=== PATIENT | male | born 1955 | race Caucasian/White ===

== ENCOUNTER 2023-10-03 10:00 | Outpatient (CLI) | payer MEDICARE, OTHER, SELFPAY ==
--- NOTE | ~2023-10-03 | MR_ITS ---
MRI of the lumbar spine Clinical History: Radiculopathy Technique: Axial T2-weighted images, and sagittal T1-weighted, T2-weighted, and STIR images were acqu ired. Findings: No acute fracture or subluxation seen. Probable mild chronic compression deformity of L3. T here is posterior fusion from L4 through S1 with associated bilateral rods and transpedicular screws. Prior hemilaminectomy at L4. No suspicious bone marrow signal abnormality seen. At L1-L2, there is no disc bulge or herniation. There is moderate facet arthropathy. No central canal stenosis. There is moderate left neural foraminal narrowing. Right neural foramen minimally narrowed . At L2-L3, there is severe degenerative disc narrowing. There is disc bulge and moderate facet arthrop athy, with minimal central canal stenosis. There is severe bilateral neural foraminal compromise, rig ht worse than left. At L3-L4, there is moderate to advanced degenerative disc narrowing. Mild disc bulge and moderate to advanced facet arthropathy are present, with mild central canal stenosis. There is severe bilateral n eural foraminal, otherwise. At L4-L5, there is facet arthropathy and minimal disc bulge. No adriana central canal stenosis. There i s severe bilateral neural foraminal compromise, left worse than right. At L5-S1, there is minimal disc bulge and facet arthropathy. No central canal stenosis. There is prob able severe bilateral neural foraminal narrowing. Paravertebral soft tissues are unremarkable. Impression: Severe degenerative spondylosis, with prior posterior fusion from L4 through S1. Probable mild chronic compression deformity of L3. Reviewed, dictated and finalized at location . Impression: Severe degenerative spondylosis, with prior posterior fusion from L4 through S1 . Probable mild chronic compression deformity of L3.
== END 2023-10-03 10:01 ==
LOC: MICIMG 10:03
PROVIDERS: PCP Physician Assistant; Visit Provider Physician Assistant
DX: M54.16 Radiculopathy, lumbar region (principal); Z98.1 Arthrodesis status; M43.06 Spondylolysis, lumbar region
CPT/HCPCS: 72148

== ENCOUNTER 2024-03-05 10:06 | Outpatient (CLI) | payer MEDICARE, OTHER, SELFPAY ==
--- NOTE | 2024-03-05 12:15 | NEURO_ITS ---
EMG and Nerve Conduction Studies Clinical note: The patient is 68-year-old with history of diabetes mellitus and bilateral footdrop. He also has had multiple surgeries on the lumbar spine. On a brief neurological examination patient was noted to have weakness of dorsiflexion of both ankles. Please refer to findings given below. Summary of findings : 1. Left and right peroneal motor distal latency is within normal limits however amplitude was moderately decreased on the right and normal on the left side conduction velocity from fibular head to ankle was mildly decreased on the left but normal on the right side. No focal slowing was seen across the fibular head. 2. Bilateral tibial motor distal latencies were within normal limits. Amplitudes were moderately decreased for left more than right side and conduction velocity mildly decreased. 3. Left sural sensory distal latency was normal however amplitude was significant decreased. Right sural and right medial plantar sensory were absent. 4. H reflex latency was mildly prolonged on the right and normal on the left side however amplitudes was markedly decreased. 5. EMG examination performed using a monopolar needle electrode. Paraspinal muscles were not examined in view of the previous surgeries in this area. Mild chronic denervation changes were seen in the right tibialis anterior however marked loss of motor unit recruitment was noted in tibialis anterior and peroneus longus and extensor digitorum brevis on both sides no denervation changes or significant changes in motor unit recruitment were seen in the proximal muscles in the L5 distribution Impression 1. 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 Overall findings are suggestive of a severe , chronic bilateral, common peroneal neuropathy most likely at fibular head distal to the branch to biceps more short head however this would appear to be predominantly axonal involvement such as may be seen with diabetes mellitus, since the no focal slowing was noted across the fibular head. Overall findings did not show evidence for a L5 radiculopathy since proximal muscles such as tensor fascial randell and semimembranosus show no denervation changes and normal recruitment pattern. Paraspinal muscles were not examined since the patient has had multiple surgeries on lumbar spine. However if clinically relevant radiographic correlation for concurrent lumbosacral radiculopathy may be considered. Please feel free to call me if you have any questions regarding this study. Clau Perry MD,FAAN,FAANEM Neurology, clinical neurophysiology and electrodiagnostic Medicine Motor Nerve Results Latency Amplitude F-Lat Segment Distance CV Comment Site (ms) (mV) (ms) (cm) (m/s) Left Fibular (EDB) Motor Ankle 4.2 2.2 Bel Fib Head 11.7 2.1 Bel Fib Head-Ankle 260 35 Pop Fossa 12.6 1.98 Pop Fossa-Bel Fib Head 70 78 Right Fibular (EDB) Motor Ankle 4.7 1.39 Bel Fib Head 11.1 1.32 Bel Fib Head-Ankle 255 40 Pop Fossa 13.0 1.32 Pop Fossa-Bel Fib Head 80 42 Left Tibial (AHB) Motor Ankle 3.6 3.0 Knee 13.9 1.86 Knee-Ankle 390 38 Right Tibial (AHB) Motor Ankle 5.2 5.0 Knee 15.2 2.7 Knee-Ankle 390 39 Sensory Nerve Results Latency (Peak) Amplitude (P-P) Segment Distance CV Comment Site (ms) (?V) (cm) (m/s) Right Medial Plantar (Mixed) Sensory Med Sole-Med Mall NR NR Med Sole-Med Mall 100 NR Left Sural Sensory Calf-Lat Mall 3.6 3 Calf-Lat Mall 120 33 Right Sural Sensory Calf-Lat Mall NR NR Calf-Lat Mall 120 NR H-Re
== END 2024-03-05 10:07 | disposition home or self-care (01) ==
PROVIDERS: Visit Provider Neurological Surgery
DX: M48.061 Spinal stenosis, lumbar region without neurogenic claudication (principal); R94.131 Abnormal electromyogram [EMG]
CPT/HCPCS: 95886; 95910

== ENCOUNTER 2024-05-30 10:41 | Outpatient (CLI) | payer MEDICARE, OTHER, SELFPAY ==
--- NOTE | ~2024-05-30 | XR_ITS ---
3 VIEWS LUMBAR SPINE Ordering provider: Lowell Maria MD History: . Z98.1 - Arthrodesis status . Comparison: None. FINDINGS: VERTEBRAL BODIES:Postoperative changes at the levels of L4, L5 and S1. No visible fracture or sublux ation. Degenerative changes of the spine. DISK SPACES: Disc spacers seen at the level of L4-L5 and L5-S1. Narrowing of the disc L2-L3 and L3-L4 . SOFT TISSUES: Aortic atherosclerotic changes. IMPRESSION: No acute osseous abnormality lumbar spine. Postoperative changes. Multilevel degenerative disc disease. Reviewed, dictated and finalized at location A. E MACHINE OPERATOR
== END 2024-05-30 10:42 | disposition home or self-care (01) ==
PROVIDERS: PCP Family Medicine; Visit Provider Neurological Surgery
DX: M51.369 Other intervertebral disc degeneration, lumbar region without mention of lumbar back pain or lower extremity pain (principal); M51.379 Other intervertebral disc degeneration, lumbosacral region without mention of lumbar back pain or lower extremity pain; Z98.1 Arthrodesis status
CPT/HCPCS: 72100

== ENCOUNTER 2024-07-04 16:02 | Outpatient (CLI) | payer MEDICARE, OTHER, SELFPAY ==
--- NOTE | ~2024-07-04 | CT_ITS ---
EXAMINATION: CT lumbar spine wo con DATE: 07/04/2024 16:27 INDICATION: Spinal stenosis, lumbar region without neurogenic claudication. TECHNIQUE: Computed tomography (CT) of the lumbar spine was performed without intravenous contrast. A utomated exposure control and iterative reconstruction technique were employed. The dose-length produ ct was 1035.77 mGy-cm. COMPARISON: Lumbar spine MRI 10/03/2023 FINDINGS: There is 9 degrees levocurvature of lumbar spine. There is 4 mm anterolisthesis of L5 on S1 . There are chronic bilateral L5 pars defects. There is mild chronic anterior wedging of T11, T12, an d L3 vertebral bodies. There are changes of anterior and posterior fusion procedures from L4 to S1 wi th interbody devices and pedicle screws. There is severely decreased disc height at L2-L3 and moderat edelmira decreased disc height at L3-L4. The following disc levels are specifically discussed: L1-L2: The disc is bulging. There is moderate bilateral facet joint osteoarthritis. There is mild gadiel ateral neural foraminal stenosis. There is no central canal stenosis. L2-L3: The disc is bulging. There is moderate right and mild left facet joint osteoarthritis. There i s moderate bilateral neural foraminal stenosis. There is mild central canal stenosis. L3-L4: The disc is bulging. There is mild bilateral facet joint hypertrophy. There is moderate bilate ral neural foraminal stenosis. There is mild central canal stenosis. L4-L5: There is moderate bilateral facet joint hypertrophy. There is mild right and moderate left nesha ral foraminal stenosis. There is no central canal stenosis. L5-S1: There is severe right and moderate left facet joint hypertrophy. There is moderate and mild le ft neural foraminal stenosis. There is no central canal stenosis. IMPRESSION: 1. Severe lumbar spondylosis. 2. Anterior and posterior fusion procedures from L4 to S1. Reviewed, dictated and finalized at location A. LATORY LEADER
== END 2024-07-04 16:03 | disposition home or self-care (01) ==
PROVIDERS: PCP Family Medicine; Visit Provider Neurological Surgery
DX: M47.816 Spondylosis without myelopathy or radiculopathy, lumbar region (principal); M43.26 Fusion of spine, lumbar region
CPT/HCPCS: 72131

== ENCOUNTER 2025-01-17 09:30 | Outpatient (CLI) | payer MEDICARE, OTHER, SELFPAY ==
--- OUTSIDE RECORDS SUMMARY | 2025-01-17 09:49 | XMS_ITS | Clinical Summary ---
Author Organization [facility] Address [address] [place] [address] Care Team Providers Care Home Energy Consultant Supervisor Name Role Phone Unavailable Primary Care Provider Unavailabl e Social History Tobacco Use Types Packs/Day Years Used Date Smoking Tobacco: Never Assessed Sex and Gender Information Value Date Recorded Sex Assigned at Not on file Legal Sex Male 10:45 AM DIRECTOR CRITICAL CARE Gender Identity Not on file Sexual Orientation Not on file Plan of Treatment Health Maintenance Due Date Last Done Comments Hepatitis C Virus (HCV) Screening 1955 TdaP Immunization 1955 Cologuard 1998 Colonoscopy 1998 Colorectal Cancer Screening 1998 Immunochemical Fecal Occult Blood 1998 Pneumococcal Immunization (5 0+ years) (1 of 1 - PCV) 2003 Zoster Immunization (1 of 2) 2003 SARS-COV-2 Immunization (1 - 2023- season) 2024 Influenza Immunization (#1) 2025 Respiratory Syncytial Virus (RSV) Immunization (Adult) (1 - 1-dose 75+ series) 2028 Hepatitis B Immunization Aged Out No longer eligible based on patient's age to complete this topic Human Papillomavirus (HPV) Immunization Aged Out No longer eligible b ased on patient's age to complete this topic Meningococcal Immunization (ACWY) Aged Out No longer eligible based on patient's age to complete this topic Rotavirus Immunization Aged Out No lo nger eligible based on patient's age to complete this topic
--- OUTSIDE RECORDS SUMMARY | 2025-01-17 09:49 | XMS_ITS | Clinical Summary ---
Author Organization [facility] Address [address] [place] [address] Care Team Providers Care Adobe Layer Helper Name Role Phone Mely Morgan PA-C Primary Care Provider Amaris Nagy MD Unavailable [phone] Source Comments [facility],non-owned Affiliates and Associated Physician Practices is amultiple site organization consisting of ambulatory clinics and hospital sitesin [place], [place], [place] and [place]. This disclosure is being madepursuant to the Care Everywhere program and may not contain all information available regarding this patient. Last updated 18.[facility] Allergies No known active allergies Medications * Be aware that medications may not be up to date on this document. Alwaysverify current medications with the patient. levothyroxine (SYNTHROID) 125 MCG tablet Take 125 mcg by mouth daily before breakfast Active metFORMIN (GLUCOPHAGE) 500 MG tablet Take 500 mg by mouth 2 times daily with morning and evening meal Active gabapentin (NEURONTIN) 300 MG capsule Take 300 mg by mouth 3 times daily Active insulin aspart (NOVOLOG) vial Inject 8 Units subcutaneously every morning Active insulin aspart (NOVOLOG) pen Inject 10 Units subcutaneously daily with lunch Active insulin aspart (NOVOLOG) pen Inject 12 Units subcutaneously daily with dinner Active sertraline (ZOLOFT) 100 MG tablet Take 100 mg by mouth once daily Active testosterone cypionate (DEPO-TESTOSTE TEENA) 200 MG/ML injection INJECT 2ML EVERY 3 WEEKS 1 Active rOPINIRole (REQUIP) 2 MG tablet Take 2 mg by mouth 2 times daily 1 Active tadalafil (CIALIS) 5 MG tablet 1 Active Continuous Blood Gluc Sensor (FREESTYLE BHARAT 14 DAY SENSOR) MISC USE 1 EVERY 14 DAYS 1 Active B-D UF III MINI PEN NEEDLES 31G X 5 MM needle USE 1 NEEDLE 4 TIMES A DAY 1 Active BD DISP NEEDLES 27G X 1/2 MISC USE 1 (ONE) SYRINGE DIRECTED WITH TESTOSTERONE 1 Active B-D 3CC LUER-PATRICK SYR 25GX1 25G X 1 3 ML MISC 1 (ONE) SYRINGE DIRECTED WITH TESTOSTERONE 1 Active SYNTHROID 175 MCG tablet Take 175 mcg by mouth once daily 1 Active metFORMIN (GLUCOPHAGE) 1000 MG tablet Take 1,000 mg by mouth 2 times daily 1 Active Active Problems Problem Noted Date Diagnosed Date Hyperkalemia 12/06/2020 Trauma 12/06/2020 Fall 12/06/2020 Hyperglycemia 12/06/2020 Elevated serum creatinine 12/06/2020 Closed fracture of third thoracic vertebra 12/06 Closed fracture of upper end of right fibula Social History Tobacco Use Types Packs/Day Years Used Date Smoking Tobacco: Never Smokeless Tobacco: Current Chew Alcohol Use Standard Drinks/Week Comments Yes 0 (1 standard drink = 0.6 oz pur e alcohol) occ Sex and Gender Information Value Date Recorded Sex Assigned at Not on file Legal Sex Male 10:37 AM CDT Gender Identity Not on file Sexual Orientation Not on file Last Filed Vital Signs Vital Sign Reading Time Taken Comments Blood Pressure 132/84 12/08/2020 8:09 AM CDT Pulse 78 12/08/2020 8:09 AM CDT Temperature 36.7 C (98.1 F) 12/08/2020 8:09 AM CDT Respiratory Rate 20 12/08/2020 8:09 AM CDT Oxygen Saturation 97% 12/08/2020 8:09 AM CDT Inhaled Oxygen Concentration - - Weight 83.9 kg (185 lb) 12/17/2020 4:05 PM CDT Height 160 cm (5' 3) 12/17/2020 4:05 PM CDT Body Mass Index 32.77 12/17/2020 4:05 PM CDT Plan of Treatment Health Maintenance Due Date Last Done Comments COLOGUARD (AGES 45-75) - COLON CA SCREENING 1953 COLON MONITORING 1953 COLONOSCOPY - COLON CA SCREENING 1953 CT COLONOGRAPHY - COLON CA SCREENING 1953 Colorectal Cancer Screening 1953 FIT - COLON CA SCREENING 1953 FLEX SIG - COLON CA SCREENING 1953 LIPID TESTING 1953 HEPATITIS C SCREENING 07/25/1971 DTAP/TDAP/TD VACCINES (1 - Tdap) 1972 PNEUMOCOCCAL VACCINE 50+ (1 of 1 - PCV) 2003 ZOSTER VACCINE (1 of 2) 2003 SCREENING FOR DIABETES 12/09/2023 , 12/08/2020, 12/07/2020, Additional history exists COVID-19 VACCINE ( - 2023- season) 2024 DEPRESSION SCREENING 06/20/2024 INFLUENZA VACCINE (#1) 2025 Respiratory Syncytial Virus (RSV) Vaccine Pt: or over 60 yrs (1 - 1-dose 75+ series) 2028 HEPATITIS B VACCINE Aged Out No longe r eligible based on patient's age to complete this topic HIB VACCINE Aged Out No longer eligi ble based on patient's age to complete this topic HPV VACCINE Aged Out No longer eligi ble based on patient's age to complete this topic MENINGOCOCCAL (Group B) VACCINE SHARED DECISION-MAKING Aged Out No longer eligible based on patient's age to complete this topic MENINGOCOCCAL GROUPS A/C/Y/W VACCINE Aged Out No longer eligible based on patient's age to complete this topic Medical Devices Implanted Type Area Heel Washer Stringing Machine Operator Device Identifier Shelf Expiration Date Model / Serial / Lot Plate Lopro Crsslck Rds Rt Dist Volr 51 Implanted:Qty: 1 on 12/07/2020 by Amaris Nagy MD at [facility] Right: Wrist [employer] [id number] / / Screw 2.7mm 18mm 3 Ld Thrdlk Tpr Head Implanted:Qty: 1 on 12/07/2020 by Amaris Nagy MD at [facility] Right: Wrist [employer] [id number] / / Screw 2.7mm 20mm Crsslck Tpr Head 3 Ld Implanted:Qty: 1 on 12/07/2020 by Amaris Nagy MD at [facility] Right: Wrist [employer] [id number] / / Screw 2.7mm 22mm Lck Sorin Nonster Bone Implanted:Qty: 4 on 12/07/2020 by Amaris Nagy MD at [facility] Right: Wrist [employer] [id number] / / Screw 2.7mm 24mm Crsslck Tpr Head 3 Ld Implanted:Qty: 2 on 12/07/2020 by Amaris Nagy MD at [facility] Right: Wrist [employer] [id number] / / Screw 2.7mm 16mm Sq Lck Rds Dist Volr Implanted:Qty: 2 on 12/07/2020 by Amaris Nagy MD at [facility] Right: Wrist [employer] [id number] / / Screw 2.7mm 16mm Lopro Nonster Bone Lf Implanted:Qty: 1 on 12/07/2020 by Amaris Nagy MD at [facility] Right: Wrist [employer] [id number] / / Explanted Type Area Heel Washer Stringing Machine Operator Device Identifier Shelf Expiration Date Model / Serial / Lot Wire K 1.6mm Ss Fx Nonster Explanted:Qty: 3 on 12/07/2020 at [facility] Right: Wrist [employer] [id number] / / Procedures Procedure Name Priority Date/Time Associated Diagnosis Comments GLUCOSE - POINT OF CARE Routine 12/08/2020 8:09 AM CDT from Last 3 Months or Most Recently Relevant to Health Maintenance Results * (ABNORMAL) GLUCOSE - POINT OF CARE (12/08/2020 8:09 AM CDT) [facility] Glucose WB/POC 234(H) 70 - 106 mg/dL 12/08/2020 8:26 AM CDT [facility] Specimen Type Arterial/C apillary 12/08/2020 8:26 AM CDT [facility] Blood BLOOD SPECIMEN / Unknown 12/08/2020 8:09 AM CDT 12/08/2020 8:26 AM CDT Angel Garza MD LAB - POINT OF CARE O RDERABLES Final Result [facility] [id number] [place] [address] from Last 3 Months or Most Recently Relevant to Health Maintenance Insurance AET MEDICARE Advance Directives * Full Code (Latest Code Status on File) Date Activated Date Inactivated Comments 12/06/2020 7:32 PM 12/08/2020 4:45 PM Care Teams Adobe Layer Helper Relationship Specialty Start Date End Date Mely Morgan PA-C [address] [place] [address] PCP - General Physician Appeals Rn 12/06/20 [place] [address] [place] [id number] Orthopedic Surgery 12/17/20
--- NOTE | 2025-01-17 10:49 | ECG_ITS ---
Test Date: 2025-01-17 11:19:23 Measurements Intervals [place] Rate: 70 P: 33 SC: 211 QRS: -21 QRSD: 132 T: -12 QT: 385 QTc: 418 Interpretive Statements SINUS RHYTHM WITH FIRST DEGREE AV BLOCK RIGHT BUNDLE BRANCH BLOCK BASELINE ARTIFACT- I, II, III, AVR ABNORMAL ECG No previous ECG available for comparison Electronically Signed On 01-18-2025 06:37:14 CDT by Layton Crawford D.O.
[2025-01-17 11:56] LABS: Hematocrit 51.0 % (42.0-52.0); Hemoglobin 16.2 g/dL (14.0-18.0); Mean Corpuscular HGB Conc 31.8 g/dl (32-36); Mean Corpuscular Hemoglobin 26.4 pg (26-34); Mean Corpuscular Volume 83.1 fl (80-100); Platelet Count Result 171 k/mm3 (150-375); Red Blood Count 6.14 M/mm3 (4.6-6.20); White Blood Count 5.3 K/mm3 (4.5-10.0)
[2025-01-17 12:02] LABS: Add Urine Microscopic? NO; Appearance Urine Clear (Clear); Glucose Urine UA 3+ mg/dL (Negative); Leukocyte Esterase Ur Negative LEU/UL (Negative); Nitrate Urine Negative (Negative); Specific Grav Ur 1.026 (1.001-1.035)
[2025-01-17 12:12] LABS: INR 1.1; Prothrombin Time 14.6 Seconds (11.1-14.7)
[2025-01-17 12:13] LABS: Partial Thromboplastin Time 31.1 Seconds (22.3-36.8)
[2025-01-17 12:20] LABS: Anion Gap 12 mmol/L (4-12); Blood Urea Nitrogen 29 mg/dL (9-20); Calcium 9.9 mg/dL (8.4-10.2); Carbon Dioxide 24 mmol/L (22-30); Chloride 99 mmol/L (98-107); Estimated Glomerular Filt Rate > 60; Glucose 218 mg/dL (65-110); Potassium 4.2 mmol/L (3.4-5.0); Sodium 135 mmol/L (137-145)
[2025-01-17 12:39] LABS: Hemoglobin A1C 7.5 % (<5.7)
== END 2025-01-17 09:31 | disposition home or self-care (01) ==
LOC: ANHSURGERY 09:35
PROVIDERS: PCP Family Medicine; Visit Provider Neurological Surgery
DX: R94.31 Abnormal electrocardiogram [ECG] [EKG] (principal); S32.009K Unspecified fracture of unspecified lumbar vertebra, subsequent encounter for fracture with nonunion
CPT/HCPCS: 36415; 80048; 81003; 83036; 85027; 85610; 85730; 86850; 86900; 86901; 93005

== ENCOUNTER 2025-01-29 02:06 | Day surgery (SDC) | payer MEDICARE, OTHER, SELFPAY ==
--- NOTE | 2025-01-17 09:36 | PC.NURSE ---
Report to the Outpatient Waiting Room, entrance under the green pavilion located off [facility], at time _6 AM on date __01/29/25 . Planned Procedure Time: _7 AM .? Time changes happen often and if your time is changed the preop area will call you the afternoon before. - You and your visitor will be asked to self-screen and do not enter if you have any COVID symptoms. Please call surgeon if you need to reschedule. - A mask is optional within the hospital at this time. Patients may have clear liquids (water, carbonated beverages, clear teas, apple juice) until 3 hours prior to surgery ( 4:30 AM) with a maximum of 20 ounces. - No food from midnight until time of surgery and no smoking, or chewing tobacco (or any form of nicotine). No chewing gum, candy or mints. Take only the following medications with a SIP of water on the morning of surgery: ___GABAPENTIN,LEVOTHYROXINE,SERTRALNIE DO NOT STOP ANY OF YOUR OTHER PRESCRIPTION MEDICATIONS PRIOR TO SURGERY EXCEPT THE FOLLOWING Hold all vitamins and supplements for 3 days per anesthesiologist.LAST DOSE 01/25/25 Medications to discontinue per physician NONE Please no make-up, nail setswana, hairspray, perfume, deodorant, or body powder the day of surgery.? No jewelry (including any body piercings) or valuables the day of surgery, leave them at home.? Please take a shower or bath the night before, or the morning of, surgery with an antibacterial soap.? Wear comfortable, loose fitting clothing.? Children are encouraged to wear pajamas. - Jewelry must be removed prior to entering the operating room.? Rings and piercings that are not removed may be cut off. - The hospital will not accept responsibility for valuables.? - Please leave all valuables, including medications, at home the day of surgery. If you are going home after surgery, a licensed city route driver must drive you home.? - NO public transportation without another adult if you receive anesthesia. - We recommend that an adult stay with you for 24 hours following discharge. - We also recommend that you do not drive, make important decision, drink alcoholic beverages, or take any drugs that were not prescribed by your health care provider for at least 24 hours after your discharge time. Follow any additional instructions given to you from your surgeon. VERBAL AND WRITTEN instructions given to __PATIENT and asked if any additional questions and then verbalized understanding. Patient advised to call surgeon office or pre surgery nurse liaison [phone] if any additional questions.
[2025-01-17 09:57] VITALS: BMI 33.7
--- NOTE | 2025-01-17 10:17 | PC.NURSE ---
Report to the Outpatient Waiting Room, entrance under the green pavilion located off [facility], at time ___6 am____ on date __01/29/25 . Planned Procedure Time: _7:30 am .? Time changes happen often and if your time is changed the preop area will call you the afternoon before. - You and your visitor will be asked to self-screen and do not enter if you have any COVID symptoms. Please call surgeon if you need to reschedule. - A mask is optional within the hospital at this time. Patients may have clear liquids (water, carbonated beverages, clear teas, apple juice) until 3 hours prior to surgery ( 4:30 am) with a maximum of 20 ounces. - No food from midnight until time of surgery and no smoking, or chewing tobacco (or any form of nicotine). No chewing gum, candy or mints. Take only the following medications with a SIP of water on the morning of surgery: _GABAPENTIN,LEVOTHYROXINE,SERTRALINE DO NOT STOP ANY OF YOUR OTHER PRESCRIPTION MEDICATIONS PRIOR TO SURGERY EXCEPT THE FOLLOWING Hold all vitamins and supplements for 3 days per anesthesiologist.LAST DOSE 01/25/25 Medications to discontinue per physician NONE Date to take last dose Please no make-up, nail tongan, hairspray, perfume, deodorant, or body powder the day of surgery.? No jewelry (including any body piercings) or valuables the day of surgery, leave them at home.? Please take a shower or bath the night before, or the morning of, surgery with an antibacterial soap.? Wear comfortable, loose fitting clothing.? Children are encouraged to wear pajamas. - Jewelry must be removed prior to entering the operating room.? Rings and piercings that are not removed may be cut off. - The hospital will not accept responsibility for valuables.? - Please leave all valuables, including medications, at home the day of surgery. If you are going home after surgery, a licensed local company flatbed truck driver must drive you home.? - NO public transportation without another adult if you receive anesthesia. - We recommend that an adult stay with you for 24 hours following discharge. - We also recommend that you do not drive, make important decision, drink alcoholic beverages, or take any drugs that were not prescribed by your health care provider for at least 24 hours after your discharge time. Follow any additional instructions given to you from your surgeon. VERBAL AND WRITTEN instructions given to __PATIENT and asked if any additional questions and then verbalized understanding. Patient advised to call surgeon office or pre surgery nurse liaison [phone] if any additional questions.
[2025-01-17 10:45] VITALS: BP 126/88; PULSE 75; RESP 18; TEMP 36.8; O2SAT 100
[2025-01-29] VITALS (16 sets, daily range): BP systolic 100–132; BP diastolic 52–81; PULSE 74–103; RESP 12–20; TEMP 36.1–38.8; O2SAT 92–100; BMI 33.3
--- NOTE | ~2025-01-29 | XR_ITS ---
Indication: L4-5, L5-S1 redo posterolateral instrumented fusion TECHNIQUE: Fluoroscopy used during L4-5, L5-S1 redo posterolateral instrumented fusion performed by [Lowell Maria MD] on 01/29/2025. 10 seconds fluoroscopy with 3 fluoroscopic images images ca ptured. FINDINGS: Correlate with procedure note. IMPRESSION: Fluoroscopy used during L4-5, L5-S1 redo posterolateral instrumented fusion. Reviewed, dictated and finalized at location A. IMPRESSION: Fluoroscopy used during L4-5, L5-S1 redo posterolateral instrumente d fusion.
--- OUTSIDE RECORDS SUMMARY | 2025-01-29 02:10 | XMS_ITS | Encounter Summary ---
Author Organization [facility] Address [address] [place] [address] Care Team Providers Care Nuclear Supervising Operator Name Role Phone Sylvia Sandoval MD Primary Care Provider [phone] Ziggy Garrison MD Unavailable [phone] Chanell Roberts MD Unavailable Antonio Cain MD Unavailable [phone] Encounter Details Date Type Department Care Team (Late st Contact Info) Description 11/25/2018 Abstract SFL CONVERSION [address] [place] [address] , Generic Conversion, Social History Tobacco Use Types Packs/Day Years Used Date Smoking Tobacco: Former Sex and Gender Information Value Date Recorded Sex Assigned at Male 01/24/2025 11:21 AM CDT Legal Sex Male 3:58 PM CDT Gender Identity Male 01/24/2025 11:21 AM CDT Sexual Orientation Not on file documented as of this encounter Plan of Treatment Not on file documented as of this encounter Visit Diagnoses Not on filedocumented in this encounter Additional Health Concerns Infection Onset Date Last Indicated Resolved Time COVID-19 Rule Out 01/15/2020 01/15/2020 01/16/2020 6:23 PM CDT COVID-19 Rule Out 08/18/2021 08/18/2021 08/18/2021 7:10 PM SCHOOL OFFICE ASSISTANT documented as of this encounter Care Teams Nuclear Supervising Operator Relationship Specialty Start Date End Date Sylvia Sandoval MD [address] [place] [phone] PCP - General FAMILY PRACTICE 03/07/17 [place] [address] [place] [address] [place] [phone] [place] [employer] Laborer CARDIOVASCULAR DISEASE 03/07/17 04/21/22 Chanell Roberts MD [address] [place] [address] Consulting Physician CARDIOVASCULAR DISEASE 04/22/22 Antonio Cain MD [address] [place] [address] Consulting Physician ORTHOPAEDIC SPINE SURGERY 09/17/22 documented as of this encounter
--- OUTSIDE RECORDS SUMMARY | 2025-01-29 02:10 | XMS_ITS | Encounter Summary ---
Author Organization [facility] Address [facility] [place] [address] Care Team Providers Care Logistics And Planning Manager Name Role Phone Sylvia Sandoval MD Primary Care Provider [phone] Chanell Roberts MD Unavailable Antonio Cain MD Unavailable [phone] Encounter Details Date Type Department Care Team (Late st Contact Info) Description 12/09/2022 Hospital Follow-up Call [facility] Unit [address] [place] [address] Lidya Nunez, RN Social History Tobacco Use Types Packs/Day Years Used Date Smoking Tobacco: Former Cigarettes Smokeless Tobacco: Current Chew Comments:only smoked as a te enager Alcohol Use Standard Drinks/Week Comments Yes 0 (1 standard drink = 0.6 oz pur e alcohol) rarely Humiliation, Afraid, Rape, and Kick questionnair e Answer Date Recorded Within the last year, have y ou been afraid of your partner or ex-partner? No 12/06/2022 Within the last year, have y ou been humiliated or emotionally abused in other ways by your partner or ex-partner? No Within the last year, have y ou been kicked, hit, slapped, or otherwise physically hurt by your partner or ex-partner? No 12/06/2022 Within the last year, have y ou been raped or forced to have any kind of sexual activity by your partner or ex-partner? No 12/06/2022 Overall Financial Resource Strain (CARDIA) Answe r Date Recorded How hard is it for you to pa y for the very basics like food, housing, medical care, and heating? Not hard at all 12/06/2022 Hunger Vital Sign Answer Date Recorded Within the past 12 months, y ou worried that your food would run out before you got the money to buy more. Never true 12/07/19 23 Within the past 12 months, t he food you bought just didn't last and you didn't have money to get more. Never true 12/06/2022 PRAPARE - Transportation Answer Date Re corded In the past 12 months, has l ack of transportation kept you from medical appointments or from getting medications? No 11/18 In the past 12 months, has l ack of transportation kept you from meetings, work, or from getting things needed for daily living? No 12/06/2022 Housing Stability Vital Sign Answer Bernardo e Recorded In the last 12 months, was t here a time when you were not able to pay the mortgage or rent on time? No 12/06/2022 In the last 12 months, how many places have you lived? 1 12/06/2022 In the last 12 months, was t here a time when you did not have a steady place to sleep or slept in a senior care (including now)? No 12/06/2022 Sex and Gender Information Value Date Recorded Sex Assigned at Male 01/24/2025 11:21 AM CDT Legal Sex Male 3:58 PM CDT Gender Identity Male 01/24/2025 11:21 AM CDT Sexual Orientation Not on file Occupation Industry Job Start Date Job End Date retired Not on file Not on file Not on file COVID-19 Exposure Response Date Recorded In the last 10 days, have yo u been in contact with someone who was confirmed or suspected to have Coronavirus/COVID-19? No / Unsure 11/23/2022 3:05 PM CDT documented as of this encounter Functional Status * Are you deaf or do you have serious difficulty hearing Answer Date of Assessment Author Status No 12/05/2022 10:52 PM CDT Jeffrey Gallardo RN Active * Are you blind or do you have serious difficulty seeing, even when wearing glasses? Answer Date of Assessment Author Status No 12/05/2022 10:52 PM CDT Jeffrey Gallardo RN Active * Do you have serious difficulty walking or climbing stairs? Answer Date of Assessment Author Status Yes 12/05/2022 10:52 PM Jeffrey Mccarthy RN Active * Do you have difficulty dressing or bathing? Answer Date of Assessment Author Status No 12/05/2022 10:52 PM Jeffrey Mccarthy RN Active * Because of a physical, mental, or emotional condition, do you have difficulty doing errands alone such as visiting a doctor's office or shopping? Answer Date of Assessment Author Status No 12/05/2022 10:52 PM Jeffrey Mccarthy RN Active documented as of this encounter Mental Status * Because of a physical, mental, or emotional condition, do you have serious difficulty concentrating, remembering, or making decisions? Answer Entry Date Author Status No 12/05/2022 10:52 PM Jeffrey Mccarthy RN Active documented in this encounter Plan of Treatment Not on file documented as of this encounter Visit Diagnoses Not on filedocumented in this encounter Care Teams Logistics And Planning Manager Relationship Specialty Start Date End Date Sylvia Sandoval MD [address] [place] [address] PCP - General FAMILY PRACTICE 03/07/17 Chanell Roberts MD [address] [place] [address] Consulting Physician CARDIOVASCULAR DISEASE 04/22/22 Antonio Cain MD [address] [place] [phone] Consulting Physician ORTHOPAEDIC SPINE SURGERY 09/17/22 documented as of this encounter
--- OUTSIDE RECORDS SUMMARY | 2025-01-29 02:10 | XMS_ITS | Clinical Summary ---
Author Organization [facility] Address [address] [place] [address] Care Team Providers Care Back Sizer Name Role Phone Unavailable Primary Care Provider Unavailabl e Social History Tobacco Use Types Packs/Day Years Used Date Smoking Tobacco: Never Assessed Sex and Gender Information Value Date Recorded Sex Assigned at Not on file Legal Sex Male 10:45 AM MULTIMEDIA AUTHORING SPECIALIST Gender Identity Not on file Sexual Orientation [...]
--- OUTSIDE RECORDS SUMMARY | 2025-01-29 02:10 | XMS_ITS | Encounter Summary ---
Author Organization [facility] Address [facility] [place] [address] Care Team Providers Care Casino Banker Name Role Phone Sylvia Sandoval MD Primary Care Provider [phone] Chanell Roberts MD Unavailable Antonio Cain MD Unavailable [phone] Encounter Details Date Type Department Care Team (Late st Contact Info) Description 12/06/2022 Pre-Procedure Call [facility] [place] [address] Chanell Roberts MD [address] [place] [address] Social History Tobacco Use Types Packs/Day Years [...] place to sleep or slept in a [place] facility (including now)? No 12/06/2022 Sex and Gender [...] Mccarthy RN Active * Do you have serious [...] on filedocumented in this encounter Care Teams Casino Banker Relationship Specialty Start Date End Date Sylvia Sandoval MD [address] [place] [phone] PCP - General FAMILY PRACTICE 03/07/17 Chanell Roberts MD [address] [place] [address] Consulting Physician CARDIOVASCULAR DISEASE 04/22/22 Antonio Cain MD [address] [place] [address] Consulting Physician ORTHOPAEDIC SPINE SURGERY 09/17/22 documented as of this encounter
--- OUTSIDE RECORDS SUMMARY | 2025-01-29 02:10 | XMS_ITS | Clinical Summary ---
Author Organization [facility] Address [facility] [place] [address] Care Team Providers Care Link Trainer Maintenance Man Name Role Phone Sylvia Sandoval MD Primary Care Provider [phone] Audrey Lanza MD Unavailable Antonio Cain MD Unavailable [phone] Allergies No known active allergies Medications metFORMIN 1000 MG tabletIndicatio ns:Diabetes Mellitus Take 1 tablet (1,000 mg total) by mouth 2 (two) times daily with meals. Indications: Diabetes Active testosterone cypionate 200 MG/ML injectionIndica tions:every 3 wks hormone Indications: every 3 wks hormone 7 Active levothyroxine (SYNTHROID) 200 MCG tabletIndicatio ns:Hypothyroidi sm Take 1 tablet (200 mcg total) by mouth every morning. Indications: Underactive Thyroid Take with 25mcg tab for total of 225mcg daily Active sertraline 100 MG tabletIndicatio ns:Depression Take 1.5 tablets (150 mg total) by mouth daily. Indications: Depression Active rOPINIRole 2 MG tabletIndicatio ns:restless legs Take by mouth 3 (three) times a day. Indications: restless legs 1/2 tab in the a.m (1 mg)., 1/2 tab at noon (1 mg) and 2 tabs at HS (4 mg) Active TRESIBA FLEXTOUCH 100 UNIT/ML Solution Pen-injector injection Inject 18 Units into the skin nightly. diabetes 1 Active empagliflozin (JARDIANCE) 25 MG tablet Take 1 tablet (25 mg total) by mouth daily. Active tamsulosin (FLOMAX) 0.4 MG Cap Take 1 capsule (0.4 mg total) by mouth daily. Active losartan (COZAAR) 25 MG tablet Take 1 tablet (25 mg total) by mouth daily. 30 tablet 11 3 Active finasteride (PROSCAR) 5 MG tablet Take 1 tablet (5 mg total) by mouth daily. 3 Active NOVOLOG FLEXPEN 100 UNIT/ML injection (PEN) 3 (three) times daily before meals. 8 units at breakfast 12 units at lunch 12 units at dinner 2 Active SYNTHROID 25 MCG tablet Take 1 tablet (25 mcg total) by mouth daily. Take with 200mcg dose for total of 225 mcg daily 3 Active cyclobenzaprine (FLEXERIL) 5 MG tablet Take 1 tablet (5 mg total) by mouth 3 (three) times daily. 3 Active gabapentin (NEURONTIN) 300 MG capsule TAKE 1 CAPSULE IN THE AM AND 2 CAPSULES IN THE PM 3 Active magnesium oxide (MAG-OX) 400 (240 Mg) MG tablet Take 1 tablet (400 mg total) by mouth daily. Active trimethoprim-po lymyxin b (POLYTRIM) ophthalmic solutionIndicat ions:Irritation of left eye Place 1 drop into the left eye 4 (four) times daily for 5 days. 10 mL 5 01/30/20 25 Active Active Problems Problem Noted Date Diagnosed Date Shock (CMS/HCC HHS/HCC) 12/06/2022 Symptomatic bradycardia 12/05/2022 Lumbar spinal stenosis 09/24/2022 Hypoglycemia 09/24/2022 ASD, spontaneous closure 03/16/2017 Resolved Problems Problem Noted Date Diagnosed Date Resolved Date Pre-operative cardiovascular examination 01/15/2020 02/29/2020 Encounters Date Type Department Care Team Description 01/24/2025 11:20 AM CDT Office Visit [address] [place] [address] Charlene Olivares APRN Eye Problem (Pt is here for left eye pain, Pt thinks he has something in his left eye, he's tried eye drops w no relief and also has rinsed it, pt states he got something in it last Tuesday ) 01/24/2025 Travel 11/09/2024 [facility] [address] [place] [address] Karen Erickson LPN Pre-visit Gap Closure from Last 3 Months Immunizations Immunization Administration Dates Next Due Fluzone High Dose - >Age 65 (Prefilled Syringe) 04/01/2020 Influenza (Generic) 06/15/2016 Pneumococcal (Pneumovax 23) 04/01/2020 Pneumococcal (Prevnar 13) 12/25/2018 Tdap (Generic) 09/01/2020 Family History Medical History Relation Comments Heart Disease Father Cancer Mother Relation Status Comments Father Mother Social History Tobacco Use Types Packs/Day Years Used Date Smoking Tobacco: Former Cigarettes Smokeless Tobacco: Current Chew Tobacco Cessation:Ready to Q uit: Not Asked; Counseling Given: Yes Comments:only smoked as a teenager Alcohol Use Standard Drinks/Week Comments Yes 0 [...] and heating? Not hard at all 12/06/2022 PHQ-2 Answer Date Recorded Patient Health Questionnaire-2 Score 0 01/24/2025 Hunger Vital Sign Answer Date Recorded Within [...] place to sleep or slept in a detention (including now)? No 12/06/2022 Sex and Gender Information Value Date Recorded Sex Assigned at Male 01/24/2025 11:21 AM CDT Legal Sex Male 3:58 PM CDT Gender Identity Male 01/24/2025 11:21 AM CDT Sexual Orientation Not on file Occupation Industry Job Start Date Job End Date retired Not on file Not on file Not on file Last Filed Vital Signs Vital Sign Reading Time Taken Comments Blood Pressure 144/92 01/24/2025 11:21 AM CDT Pt left before 2nd BP obtained Pulse 83 01/24/2025 11:21 AM CDT Temperature 36.6 C (97.8 F) 01/24/2025 11:21 AM CDT Respiratory Rate 16 01/24/2025 11:2 1 AM CDT Oxygen Saturation 98% 01/24/2025 11: 21 AM CDT Inhaled Oxygen Concentration - - Weight 85.7 kg (189 lb) 01/24/2025 11:2 1 AM CDT Height 162.6 cm (5' 4) 01/24/2025 11:2 1 AM CDT Body Mass Index 32.44 01/24/2025 11:21 AM CDT Plan of Treatment Health Maintenance Due Date Last Done Comments Colorectal Cancer Screening Colonoscopy (10 Years) 1953 Hepatitis C 1971 Zoster Vaccines (1 of 2) 2003 Annual Medicare Wellness Visit 2018 COVID-19 Vaccine ( season) 2024 09/20/2020, 08/31/2020 RSV Immunization or 60+ Years (1 - 1-dose 75+ series) 2028 DTaP, Tdap and Td Vaccines (2 - Td or Tdap) 09/01/2030 09/01/2020 Pneumococcal Vaccine: 50+ Years Completed 04/01/2020, 12/25/2018 AAA SCREENING Completed 12/23/2022, 05/22, 12/06/2020, Additional history exists PHQ-2 ([facility]) Completed 01/24/2025 Meningococcal B Vaccine Aged Out No l onger eligible based on patient's age to complete this topic Meningococcal Vaccine Aged Out No kateryna amy eligible based on patient's age to complete this topic RSV Immunizations Under 20 Months Aged Out No longer eligible based on patient's age to complete this topic Medical Devices Implanted Type Area Dietist Device Identifier Shelf Expiration Date Model / Serial / Lot Graft Infuse Bone Small - [id number] Implanted:Qty: 1 on 09/24/2022 by Antonio Cain MD at [facility] Bone N/A: Spine Lumbar [employer] 06/20/2024 [id number] / / [id number] Graft Bone Allosource Canc Crushed Fd 30ml - [id number] Implanted:Qty: 1 on 09/24/2022 by Antonio Cain MD at [facility] Bone N/A: Spine Lumbar [employer] 08/17/2025 [id number] / [id number] / Screw Bone 7.5mm 45mm Cd Horizon Voyager Spine Multiaxial Nonsterile 5.5mm Issac - [id number] Implanted:Qty: 4 on 09/24/2022 by Antonio Cain MD at [facility] Screw N/A: Spine Lumbar [employer] [id number] / / Screw Set 5.5/6mm Cd Horizon Soleral Voyager Nonsterile Latex Free - [id number] Implanted:Qty: 6 on 09/24/2022 by Antonio Cain MD at [facility] Screw N/A: Spine Lumbar [employer] [id number] / / Agent Hemostatic Surgiflo 8 Ml Kit - [id number] Implanted:Qty: 1 on 09/24/2022 by Antonio Cain MD at [facility] Sealant N/A: Spine Lumbar [employer] 2994 / / Tissue Surgiflo 8ml - [id number] Implanted:Qty: 1 on 01/18/2020 by Antonio Cain MD at [facility] Spine Lumbar [employer] 03/19/2021 [id number] / / [id number] Spacer 28mm X 12mm Implanted:Qty: 1 on 09/24/2022 by Antonio Cain MD at [facility] N/A: Spine Lumbar [employer] 08/27/2028 [id number] / / [id number] Spacer 28mm X 12mm Implanted:Qty: 1 on 09/24/2022 by Antonio Cain MD at [facility] N/A: Spine Lumbar [employer] 08/04/2028 [id number] / / [id number] 7.5 X 40mm Mas Implanted:Qty: 2 on 09/24/2022 by Antonio Cain MD at [facility] N/A: Spine Lumbar [employer] [id number] / / 55mm Capped Issac Implanted:Qty: 2 on 09/24/2022 by Antonio Cain MD at [facility] N/A: Spine Lumbar [employer] [id number] / / Explanted Type Area Dietist Device Identifier Shelf Expiration Date Model / Serial / Lot Bur Drill Neuro Julian 3.0mm X 3.8mm - [id number] Explanted:Qty: 1 on 08/21/2021 at [facility] Drill Spine Lumbar [employer] JONAH MARKOS [id number] / / Bit Drill 3.8mm 3mm Precision Neuro - [id number] Explanted:Qty: 1 on 09/24/2022 by Antonio Cain MD at [facility] Drill N/A: Spine Lumbar [employer] JONAH MARKOS [id number] / / Agent Hemostatic Surgiflo Thrombin 8 Ml Kit Matrix Steril - [id number] Explanted:Qty: 1 on 08/21/2021 by Antonio Cain MD at [facility] Sealant Spine Lumbar [employer] 11/17/2022 [id number] / / [id number] Bur Drill Neuro Julian 3.0mm X 3.8mm - [id number] Explanted:Qty: 1 on 01/18/2020 at [facility] [employer] JONAH MARKOS [id number] / / Procedures Procedure Name Priority Date/Time Associated Diagnosis Comments CTA CHEST Routine 12/23/2022 9:31 AM CDT Aortic aneurysm, descending from Last 3 Months or Most Recently Relevant to Health Maintenance Results * CTA CHEST (12/23/2022 9:31 AM CDT) Anatomical Region Laterality Modality Chest Computed Tomogra phy 12/24/2022 9:05 AM CDT Impressions 12/24/2022 9:17 AM CDT IMPRESSION: Aneurysmal dilatation of ascending segment thoracic aorta with greatest luminal diameter of 4.6 cm, without remarkable change since study 06/18/2022. Mild cardiac enlargement with left ventricular configuration. Ordered By: AUDREY LANZA Interpreted By: Ziggy De Leon MD, 12/24/2022 9:05 AM Narrative 12/24/2022 9:17 AM CDT 12/23/2022, 9:29 AM. HISTORY: Follow-up thoracic aortic aneurysm. EXAM: CT of the chest. CT angiographic imaging of the chest including the thoracic aorta was performed utilizing intravenous administration of 94 mL Isovue-370 contrast followed by 40 mL saline flush. Images are submitted for review in the axial, the coronal and sagittal planes. Post processed MIP angiographic imaging was performed of the pulmonary arteries and thoracic aorta and surface 3-D imaging was performed of the thoracic aorta. A dose lowering technique was used for this procedure, which may include, but is not limited to, dose reduction technique, automated exposure control, the use of iterative reconstruction, and ALARA (As Low As Reasonably Achievable) / Image Gently techniques. Correlation to study 06/18/2022. FINDINGS: Angiographic findings: Good contrast opacification of the pulmonary arteries. No intraluminal filling defects within the pulmonary arteries and no evidence of pulmonary embolism. The heart is borderline enlarged with a mild left ventricular configuration. No CT evidence of right ventricular heart strain. No pericardial effusion. Fusiform aneurysmal dilatation of the ascending segment of the thoracic aorta with greatest cross-sectional diameter of approximately 4.6 cm, unchanged since study 06/18/2022. No dilatation of the arch or descending segments of the thoracic aorta. No evidence of aortic dissection nor intraluminal thrombus. Chest findings: No mass, infiltrate or atelectasis in either lung. Calcified right hilar lymph nodes. No mediastinal mass or adenopathy. No pleural effusion. No pneumothorax. No mass or enlargement in the imaged portions of the liver, spleen, pancreas nor either adrenal gland. No calcified stones in the gallbladder. No remarkable abnormality in the upper poles of the kidneys. Procedure Note Ziggy De Leon MD - 12/24/2022 12/23/2022, 9:29 AM. HISTORY: Follow-up thoracic aortic aneurysm. EXAM: CT of the chest. CT angiographic imaging of the chest including the thoracic aorta wasperformed utilizing intravenous administration of 94 mL Isovue-370contrast followed by 40 mL saline flush. Images are submitted for reviewin the axial, the coronal and sagittal planes. Post processed MIPangiographic imaging was performed of the pulmonary arteries and thoracicaorta and surface 3-D imaging was performed of the thoracic aorta. A dose lowering technique was used for this procedure, which may include,but is not limited to, dose reduction technique, automated exposurecontrol, the use of iterative reconstruction, and ALARA (As Low AsReasonably Achievable) / Image Gently techniques. Correlation to study 06/18/2022. FINDINGS: Angiographic findings: Good contrast opacification of the pulmonary arteries. No intraluminalfilling defects within the pulmonary arteries and no evidence of pulmonaryembolism. The heart is borderline enlarged with a mild left ventricularconfiguration. No CT evidence of right ventricular heart strain. Nopericardial effusion. Fusiform aneurysmal dilatation of the ascendingsegment of the thoracic aorta with greatest cross-sectional diameter ofapproximately 4.6 cm, unchanged since study 06/18/2022. No dilatation ofthe arch or descending segments of the thoracic aorta. No evidence ofaortic dissection nor intraluminal thrombus. Chest findings: No mass, infiltrate or atelectasis in either lung. Calcified right hilarlymph nodes. No mediastinal mass or adenopathy. No pleural effusion. Nopneumothorax. No mass or enlargement in the imaged portions of the liver, spleen,pancreas nor either adrenal gland. No calcified stones in the gallbladder.No remarkable abnormality in the upper poles of the kidneys. IMPRESSION: Aneurysmal dilatation of ascending segment thoracic aorta with greatestluminal diameter of 4.6 cm, without remarkable change since study06/18/2022. Mild cardiac enlargement with left ventricularconfiguration. Ordered By: AUDREY LANZA Interpreted By: Ziggy De Leon MD, 12/24/2022 9:05 AM Audrey Lanza MD CT Final Result from Last 3 Months or Most Recently Relevant to Health Maintenance Insurance MEDICARE Advance Directives * Full Code (Latest Code Status on File) Date Activated Date Inactivated Comments 12/05/2022 10:59 PM 12/07/2022 1:32 PM * Full Code Date Activated Date Inactivated Comments 09/24/2022 5:35 PM 09/24/2022 5:38 PM Care Teams Link Trainer Maintenance Man Relationship Specialty Start Date End Date Sylvia Sandoval MD [address] [place] [address] PCP - General FAMILY PRACTICE 03/07/17 Audrey Lanza MD [address] [place] [address] Consulting Physician CARDIOVASCULAR DISEASE 04/22/22 Antonio Cain MD [address] [place] [phone] Consulting Physician ORTHOPAEDIC SPINE SURGERY 09/17/22
--- OUTSIDE RECORDS SUMMARY | 2025-01-29 02:10 | XMS_ITS | Clinical Summary ---
Author Organization [facility] Address [address] [place] [address] Care Team Providers Care Cnc Applications Engineer Name Role Phone Mely Morgan PA-C Primary Care Provider [phone] Amaris Nagy MD Unavailable Source Comments [facility],non-owned Affiliates and Associated Physician Practices is amultiple site organization consisting of ambulatory clinics and hospital sitesin [place], [place], [place] and [place]. This disclosure is being madepursuant to the Care Everywhere program and may not contain all information available regarding this patient. Last updated 18.[facility] Allergies No known active allergies Medications * [...] this topic Medical Devices Implanted Type Area Board Saw Runner Device Identifier Shelf Expiration Date Model / Serial / Lot Plate Lopro Crsslck Rds Rt Dist Volr 51 Implanted:Qty: 1 on 12/07/2020 by Amaris Nagy MD at [facility] Right: Wrist [employer] [id number] / / Screw 2.7mm 18mm 3 Ld Thrdlk Tpr Head Implanted:Qty: 1 on 12/07/2020 by Amaris Nagy MD at [facility] Right: Wrist [employer] [id number] / / Screw 2.7mm 20mm Crsslck Tpr Head 3 Ld Implanted:Qty: 1 on 12/07/2020 by Amaris Nagy MD at [facility] Right: Wrist [employer] [id number] / / Screw 2.7mm 22mm Lck Sorin Nonster Bone Implanted:Qty: 4 on 12/07/2020 by Amaris Nagy MD at [facility] Right: Wrist [employer] [id number] / / Screw 2.7mm 24mm Crsslck Tpr Head 3 Ld Implanted:Qty: 2 on 12/07/2020 by Amaris Nagy MD at [facility] Right: Wrist [employer] [id number] / / Screw 2.7mm 16mm Sq Lck Rds Dist Volr Implanted:Qty: 2 on 12/07/2020 by Amaris Nagy MD at [facility] Right: Wrist [employer] [id number] / / Screw 2.7mm 16mm Lopro Nonster Bone Lf Implanted:Qty: 1 on 12/07/2020 by Amaris Nagy MD at [facility] Right: Wrist [employer] [id number] / / Explanted Type Area Board Saw Runner Device Identifier Shelf Expiration Date Model / Serial / Lot Wire K 1.6mm Ss Fx Nonster Explanted:Qty: 3 on 12/07/2020 at [facility] Right: Wrist [employer] [id number] / / Procedures Procedure Name Priority Date/Time Associated Diagnosis Comments GLUCOSE - POINT OF CARE Routine 12/08/2020 8:09 AM CDT from Last 3 Months or Most Recently Relevant to Health Maintenance Results * (ABNORMAL) GLUCOSE - POINT OF CARE (12/08/2020 8:09 AM CDT) [facility] Glucose WB/POC 234(H) 70 - 106 mg/dL 12/08/2020 8:26 AM CDT [facility] Specimen Type Arterial/C apillary 12/08/2020 8:26 AM CDT [facility] Blood BLOOD SPECIMEN / Unknown 12/08/2020 8:09 AM CDT 12/08/2020 8:26 AM CDT Angel Garza MD LAB - POINT OF CARE O RDERABLES Final Result [facility] [address] [place] [address] from Last 3 Months or Most Recently Relevant to Health Maintenance Insurance AET MEDICARE Advance Directives * Full Code (Latest Code Status on File) Date Activated Date Inactivated Comments 12/06/2020 7:32 PM 12/08/2020 4:45 PM Care Teams Cnc Applications Engineer Relationship Specialty Start Date End Date Mely Morgan PA-C [address] [place] [address] PCP - General Physician Double Cut Off Saw Operator 12/06/20 [place] [address] [place] [id number] Orthopedic Surgery 12/17/20
--- NOTE | 2025-01-29 07:16 | P.PNAN_ITS ---
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, L5-S1 non union Patient Data Age: 69 Gender: M Height: 1.6 m Weight: 86.5 kg Last Vital Signs Temp 36.8 C 01/17/25 10:45 Pulse 75 01/17/25 10:45 Resp 18 01/17/25 10:45 BP 126/88 01/17/25 10:45 Pulse Ox 100 01/17/25 10:45 O2 Del Method Room Air 01/17/25 10:45 Allergies Allergy/AdvReac Type Severity Reaction Status Date / Time No Known Allergies Allergy Verified 01/29/25 06:54 Home Medications ?Medication ?Instructions ?Recorded ?Confirmed ?Type empagliflozin 25 mg tablet 25 mg PO DAILY 12/06/23 01/17/25 History (Jardiance) gabapentin 300 mg capsule 300 mg PO TID 12/06/23 01/29/25 History insulin aspart U-100 100 unit/mL 1 sliding scale dose subcut 12/06/23 01/17/25 History (3 mL) subcutaneous pen (Novolog USEASDIRECTD FlexPen U-100 Insulin aspart) levothyroxine 25 mcg tablet 25 mcg PO DAILY 12/06/23 01/29/25 History (Synthroid) magnesium aspart,citrate,oxide 400 mg PO DAILY 12/06/23 01/17/25 History metformin 1,000 mg tablet,extended 1,000 mg PO BID 12/06/23 01/17/25 History release 24hr (osmotic) ropinirole 2 mg tablet See Rx Instructions PO DAILY 12/06/23 01/17/25 History sertraline 100 mg tablet 100 mg PO DAILY 12/06/23 01/29/25 History testosterone cypionate 200 mg/mL 300 mg IM .[id number] 12/06/23 01/17/25 History intramuscular oil (Depo-Testosterone) Laboratory Tests 01/29/25 06:41 POC Capillary Glucose 107 H mg/dl (65-105) Patient hx anesthesia problems: none Family hx anesthesia problems: none Results Review: All pre-operative results and documents have been reviewed as part of the pre- operative evaluation. [facility] Past Medical History Medical History Hypothyroidism Diabetes Arthritis Surgical History Surgical History History of vasectomy Hx of cataract surgery History of colonoscopy H/O wrist surgery History of back surgery Family History Family History Father Heart disease Mother Cancer Grandparent Cancer Social History Social History Smoking packs per day: 0.5 Smoking cigarettes per day: 10.0 Years smoked: 10 Smoking pack-years: 5.00 Smoking status: Never smoker Tobacco type: cigarettes Smokeless tobacco user: chewing tobacco Smoking end date: 06/20/89 Additional smoking assessment comments: CURRENTLY CHEWS TOBACCO Alcohol intake: current Alcohol use details: 3 DRINKS PER MONTH Substance use: never Do You Feel Safe in your Home?: Yes Lack of Transportation: No Lack of Food: Never True Current Housing: I Have Housing Concerned About Future Housing: No Difficulty Paying Gas/Electric Bills: No Difficulty Paying for Meds: No Currently Unemployed: No Education: High School Diploma/GED Living arrangements: with family Additional living arrangements comments: Occupation/Education: retired Spiritual care concerns: No Anes - Eval Final PreProcedure Day of Procedure 01/29/25 07:16 Patient weight: obese Heart: regular rate and rhythm Lungs: clear to auscultation Airway: Mallampati scale class II Neurological: alert and oriented Last oral intake: 2 hours (tobacco) ASA classification: III Emergent: no Anesthetic plan: proceed Anesthesia type and monitoring: general ETT and standard monitoring Results Review: All pre-operative results and documents have been reviewed as part of the pre- operative evaluation. Informed Consent: The patient's anesthetic plan and its attendant risks and benefits were discussed with the patient/family/POA. Questions were solicited and answers provided to the satisfaction of the patient/family/POA.
[2025-01-29] MEDS: LACTATED RINGERS 1,000 ML 30 ML IV CONT ×2 (07:28→11:24)
--- NOTE | 2025-01-29 07:48 | PM.IMHP ---
H&P: HPI History of Present Illness Date/Time: 01/29/25 07:48 Chief Complaint: Back and leg pain Narrative: Anant is here today in follow-up of his back and lower extremity issues. He is a 68-year-old gentleman who is 1 year status post L4-5 and L5-S1 posterior lumbar interbody fusion. In the past he had other operations as well including a decompression which was likely a left-sided hemilaminectomy at L2-3. With the other operation was is unknown to me. His operation was done for back and leg pain. He noticed modest improvement for a couple of months after the surgery but then started to worsen again but in a slightly different way. He developed pain in his back and wobbliness in his legs when he stood for any length of time. He noticed that he could not lift his legs at the hip well on either side and therefore had a lot of difficulty with stairs having to widen his gait to go up and down stairs and to use a guard rail. He is unsteady and hold onto a guard rail. he also noticed the dorsiflexion weakness. The hip flexion issues seem to be somewhat related to pain as well. He is limited distracted by the symptoms on a daily basis. He does not report new bowel or bladder difficulty. Review of Systems Review of Systems: All systems reviewed & are unremarkable except as noted in HPI and below Denies chills, Denies fever(s), Denies weakness, Denies weight gain and Denies weight loss Eyes Denies change in vision and Denies diplopia ENT Denies neck pain and Denies disequilibrium Card Denies chest pain and Denies dyspnea Resp Denies cough and Denies dyspnea GI Denies abdominal pain, Denies change in bowel habits, Denies fecal incontinence and Denies vomiting Denies hematuria, Denies oliguria, Denies difficulty urinating, Denies dysuria, Denies urinary frequency, Denies urinary hesitancy, Denies urinary incontinence and Denies urinary urgency Musc Reports as per HPI, Reports back pain, Denies muscle weakness, Denies neck pain, Reports numbness and Denies stiffness Skin/ Breast Reports system reviewed and no additional complaints, except as documented Neuro Reports as per HPI, Denies burning sensations, Denies focal weakness, Reports numbness, Denies Other visual disturbances, Reports radicular pain, Reports paresthesias, Denies disequilibrium and Denies weakness Psych Reports no additional complaints, Denies depression and Denies hopelessness Endo Reports no additional complaints and Denies polyuria Rahul/ Lymph Reports no additional complaints Aller/ Immun Reports no additional complaints [facility] Past Medical History Medical History Hypothyroidism Diabetes Arthritis Surgical History Surgical History History of vasectomy Hx of cataract surgery History of colonoscopy H/O wrist surgery History of back surgery Family History Family History Father Heart disease Mother Cancer Grandparent Cancer Social History Social History Smoking packs per day: 0.5 Smoking cigarettes per day: 10.0 Years smoked: 10 Smoking pack-years: 5.00 Smoking status: Never smoker Tobacco type: cigarettes Smokeless tobacco user: chewing tobacco Smoking end date: 06/20/89 Additional smoking assessment comments: CURRENTLY CHEWS TOBACCO Alcohol intake: current Alcohol use details: 3 DRINKS PER MONTH Substance use: never Do You Feel Safe in your Home?: Yes Lack of Transportation: No Lack of Food: Never True Current Housing: I Have Housing Concerned About Future Housing: No Difficulty Paying Gas/Electric Bills: No Difficulty Paying for Meds: No Currently Unemployed: No Education: High School Diploma/GED Living arrangements: with family Additional living arrangements comments: Occupation/Education: retired Spiritual care concerns: No Meds Home Medications and Allergies Home Medications ?Medication ?Instructions ?Recorded ?Confirmed ?Type empagliflozin 25 mg tablet 25 mg PO DAILY 12/06/23 01/17/25 History (Jardiance) gabapentin 300 mg capsule 300 mg PO TID 12/06/23 01/29/25 History insulin aspart U-100 100 unit/mL 1 sliding scale dose subcut 12/06/23 01/17/25 History (3 mL) subcutaneous pen (Novolog USEASDIRECTD FlexPen U-100 Insulin aspart) levothyroxine 25 mcg tablet 25 mcg PO DAILY 12/06/23 01/29/25 History (Synthroid) magnesium aspart,citrate,oxide 400 mg PO DAILY 12/06/23 01/17/25 History metformin 1,000 mg tablet,extended 1,000 mg PO BID 12/06/23 01/17/25 History release 24hr (osmotic) ropinirole 2 mg tablet See Rx Instructions PO DAILY 12/06/23 01/17/25 History sertraline 100 mg tablet 100 mg PO DAILY 12/06/23 01/29/25 History testosterone cypionate 200 mg/mL 300 mg IM .[id number] 12/06/23 01/17/25 History intramuscular oil (Depo-Testosterone) Allergies Allergy/AdvReac Type Severity Reaction Status Date / Time No Known Allergies Allergy Verified 01/29/25 06:54 Vital Signs Vital Signs - 24 hr 01/29/25 06:45 Temperature 97.5 F L Pulse Rate 74 Blood Pressure 121/81 Pulse Oximetry 97 Oxygen Delivery Room Air Exam Narrative: General: cooperative, no acute distress, well developed, alert and awake Orientation/Consciousness: oriented to person, oriented to place and oriented to time Constitutional Limitations: no limitations Other: The patient is a normally developed, normal appearing male sitting on the examination table in no acute distress. He is awake, alert, and oriented x3 with good fund of knowledge, recall of events, and fluent speech. HENVT Head: normocephalic and atraumatic Ears: external ears normal Face/Nose/Sinus: Normal external nose present Eyes Eyelids: eyelids normal Pupils: Yes Pupils normal by confrontation EOM: EOMs intact bilaterally Neck General: Yes no meningeal signs, Yes supple and Yes no JVD Resp Effort/Inspection: normal respiratory effort and able to speak in complete sentences Cardio Rate: Yes regular rate GI Inspection: No abdominal distension Musc Other: Examination of the back reveals no tenderness. Range of motion of the back is slightly limited but without significant pain in forward flexion, extension, and lateral rotation to both sides. Straight leg raise is negative bilaterally. Franklin?s test is negative bilaterally. Skin General: normal color Neuro General: Yes oriented to person, Yes oriented to place, Yes oriented to time, Yes normal cognition and Yes no meningeal signs Cranial Nerves: Yes CN's II-XII intact bilaterally Other: Motor: Strength is normal, 5/5, throughout all muscle groups of the bilateral lower extremities to direct confrontation except dorsiflexion bilaterally which is significant, he had some left hip flexor weakness. Sensory: Sensation is intact to light touch throughout the upper and lower extremities bilaterally. Reflexes: Deep tendon reflexes were difficult to elicit the knees or ankles bilaterally. There was no clonus. Gait: Gait, station, and transfers are independent and steady for short periods of time and over short distances. Psych Appearance: grossly normal Mental status: Yes mental status grossly normal Mood: congruent mood Affect: Yes normal affect Speech/Movement: Normal speech and movement present Attitude: Yes cooperative Thought Content: Normal thought content present CT scan of the lumbar spine was personally reviewed by me. This demonstrates nonunion at L5-S1 and potentially at L4-5. There was loosening of the hardware at S1 and potentially also at L4. The T lift hook graft placed on the right side is also proud of the disc space posteriorly. EMG nerve conduction study demonstrates significant to severe peroneal neuropathy bilaterally. Assessment and Plan Assessment and plan (1) Lumbar foraminal stenosis: Code(s): M48.061 - Spinal stenosis, lumbar region without neurogenic claudication Status: Acute (2) Status post lumbar spinal fusion: Code(s): Z98.1 - Arthrodesis status Status: Acute (3) Pseudoarthrosis of lumbar spine: Code(s): S32.009K - Unspecified fracture of unspecified lumbar vertebra, subsequent encounter for fracture with nonunion Status: Acute Plan Anant is a 69-year-old gentleman with potentially 3 symptomatic pathologies. 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 This could account for the dorsiflexion weakness bilaterally as no L5 radiculopathy was noted. As this has been going on for 4 years plus, I have serious doubts that decompression at the fibular head is going to result in clinical improvement, although it could be considered an attempted. He has a pseudoarthrosis at L5-S1 and likely at L4-5 as well. Until this is fixed it must be considered a pain generating issue. He may have sacroiliitis bilaterally and this can be diagnosed with diagnostic injections which we will order. However, as a 1st step I recommend fixing only the nonunion and therefore have described to him an L4-5 and L5-S1 redo posterolateral instrumented fusion, its risks, potential benefits, the operative and postoperative course in detail and answered all his questions personally. We discussed risks including but not limited to permanent neurologic deficit secondary to nerve root injury, need for reoperation secondary to infection, bleeding, CSF leak, adjacent level disease, recurrent residual pathology or instability, malposition migration of the hardware or nonunion, failure of the procedure to relieve his pain or symptoms, persistent pain, medical complications related anesthesia or surgery, etc.. He indicates understanding and elects proceed with that operation.
--- NOTE | 2025-01-29 07:51 | WPDHPUPDATE1 ---
History and Physical Update Update Date/Time: 01/29/25 07:51 History and Physical has been reviewed, including an updated exam of the patient. There are NO changes in the patient's condition. Risks, benefits, and alternatives have been discussed and questions answered. Patient agrees to proceed with procedure.
[2025-01-29] MEDS: ceFAZolin 2 GM in SODIUM CHLORIDE 0.9% IV 50 ML 100 ML IVPB (07:55)
[2025-01-29] MEDS: LIDO 1%/EPINEPHRINE 1:100,000 20 ML VIAL 30 ML INFILTRATE (08:38)
[2025-01-29] MEDS: fentaNYL CITRATE INJ (*CRX) 100 MCG/2 ML VIAL 25 MCG IV PUSH (12:38)
--- NOTE | 2025-01-29 12:57 | SUR.PHASEI ---
1255 - dr. carroll aware of accucheck 267. no orders received
--- NOTE | 2025-01-29 13:37 | ADMGEN ---
This patient, Anant Todd, was admitted to [address] [place] [address] Room 300-01. Patient/family oriented to hospital policies and general routines including ID bracelet, bed and alarms, visiting hours, pain management, procedures, bathroom and other care routines, personal items, smoking policy, room service/diet, and visiting hours. Information on how to activate the Rapid Response Team has been discussed. Patient/Family are encouraged to report perceived risks to care and to ask questions if they do not understand what they are told or what they should do.
[2025-01-29] MEDS: HYDROcodone/acetaminophen (*CRX) 10-325 MG TABLET 1 TAB PO ×2 (14:35→21:24)
[2025-01-29] MEDS: GABAPENTIN 300 MG CAPSULE PO ×2 (14:36→21:23)
--- NOTE | 2025-01-29 15:15 | PC.NURSE ---
Dr Maria notified of 380 ml of blood in hemovac drain since admission.
[2025-01-29] MEDS: ceFAZolin 1 GM in SODIUM CHLORIDE 0.9% IV 50 ML 100 ML IVPB ×2 (15:31→23:02)
--- NOTE | 2025-01-29 16:32 | PC.NURSE ---
Basal rate for insulin pump verified by Beatris at Dr Sylvia Sandoval's office.
[2025-01-29] MEDS: metFORMIN HCL XR 500 MG TAB.SR.24H 1000 MG PO (16:59)
[2025-01-29] MEDS: DOCUSATE SODIUM 100 MG CAPSULE PO (21:23)
[2025-01-30 00:15] VITALS: BP 101/59; PULSE 85; RESP 14; TEMP 36.7; O2SAT 90
[2025-01-30 04:24] VITALS: BP 113/66; PULSE 80; RESP 16; TEMP 36.2; O2SAT 100
[2025-01-30] MEDS: HYDROcodone/acetaminophen (*CRX) 10-325 MG TABLET 1 TAB PO (05:04)
[2025-01-30] MEDS: HOME MEDICATION INSULIN 1 EACH XX (06:19)
[2025-01-30] MEDS: LEVOTHYROXINE SODIUM 25 MCG TABLET PO (06:20)
[2025-01-30] MEDS: ceFAZolin 1 GM in SODIUM CHLORIDE 0.9% IV 50 ML 100 ML IVPB ×2 (06:21→14:03)
[2025-01-30] MEDS: GABAPENTIN 300 MG CAPSULE 600 MG PO (06:21)
[2025-01-30] MEDS: metFORMIN HCL XR 500 MG TAB.SR.24H 1000 MG PO (08:02)
[2025-01-30] MEDS: DOCUSATE SODIUM 100 MG CAPSULE PO (08:02)
[2025-01-30] MEDS: SERTRALINE HCL 50 MG TABLET 100 MG PO (08:02)
[2025-01-30] MEDS: EMPAGLIFLOZIN 25 MG TABLET PO (08:02)
[2025-01-30] MEDS: MAGNESIUM OXIDE 400 MG TABLET PO (08:02)
[2025-01-30 08:24] VITALS: BP 119/77; PULSE 72; RESP 16; TEMP 36.1; O2SAT 100
[2025-01-30] MEDS: HYDROcodone/acetaminophen (*CRX) 5-325 MG TABLET 1 TAB PO (11:53)
[2025-01-30] MEDS: GABAPENTIN 300 MG CAPSULE PO (11:53)
[2025-01-30 12:20] VITALS: BP 112/65; PULSE 79; RESP 16; TEMP 36; O2SAT 100
--- NOTE | 2025-01-30 15:32 | WPDNEUROSGPN ---
Progress Note: A&P Assessment and Plan (1) Status post lumbar spinal fusion: Code(s): Z98.1 - Arthrodesis status Status: Acute Plan -Remove hemovac drain -Discharge home today -Activity and wound care precautions reviewed at bedside -Follow up with Dr. Maria/Qi in clinic as scheduled Subjective Date/time seen: 01/30/25 15:32 Interval history: Doing very well today with minimal back pain and resolved leg pain. Ambulating well. Tolerating oral intake and voiding independently. He would like to go home. Review of Systems Review of Systems: All systems reviewed & are unremarkable except as noted in HPI and below Exam Narrative: AOx4 Full strength in legs with exception of 4/5 dorsiflexion bilaterally Sensation intact to light touch Seen ambulating in halls with walker without difficulty Objective Data Vital Signs Vital Signs: Vital Signs - 24 hr 01/29/25 20:00 01/29/25 20:24 01/30/25 00:15 Temperature 98.2 F 98.1 F Pulse Rate 91 85 Respiratory Rate 14 14 Blood Pressure 100/57 L 101/59 L Pulse Oximetry 92 90 Oxygen Delivery Room Air 01/30/25 04:24 01/30/25 08:00 01/30/25 08:24 Temperature 97.1 F L 96.9 F L Pulse Rate 80 72 Respiratory Rate 16 16 Blood Pressure 113/66 119/77 Pulse Oximetry 100 100 Oxygen Delivery Room Air 01/30/25 12:20 Temperature 96.8 F L Pulse Rate 79 Respiratory Rate 16 Blood Pressure 112/65 Pulse Oximetry 100 Oxygen Delivery Intake/Output Intake/Output: Intake & Output 01/27/25 01/28/25 01/29/25 01/30/25 23:59 23:59 23:59 23:59 Intake Total 750 1550 Output Total 1340 115 Balance -590 1435 Meds/Results Medications: Active Medications Generic Name Dose Route Start Last Admin Trade Name Freq PRN Reason Stop Dose Admin Hydrocodone Bitart/Acetaminophen 1 tab 01/29/25 13:24 01/30/25 11:53 Hydrocodone/Acetaminophen (*Crx) 5-325 Mg Tablet PO 1 tab Q4H PRN Administration Mild Pain (1-3) Hydrocodone Bitart/Acetaminophen 1 tab 01/29/25 13:24 01/30/25 05:04 Hydrocodone/Acetaminophen (*Crx) 10-325 Mg Tablet PO 1 tab Q4H PRN Administration Moderate Pain (4-6) Al Hydrox/Mg Hydrox/Simethicone 20 ml 01/29/25 13:24 Mag Hydrox/Al Hydrox/Simeth 30 Ml Udc PO Q4H PRN Indigestion/Heartburn Bisacodyl 10 mg 01/29/25 13:24 Bisacodyl 10 Mg Suppository RECTAL DAILY PRN Constipation Cyclobenzaprine HCl 10 mg 01/29/25 13:24 Cyclobenzaprine Hcl 10 Mg Tablet PO TID PRN Muscle Spasms Dextrose 12.5 gm 01/29/25 16:47 Dextrose 50% 25 Gm/50 Ml Syringe IV PUSH PRN PRN Hypoglycemia Protocol Docusate Sodium 100 mg 01/29/25 21:00 01/30/25 08:02 Docusate Sodium 100 Mg Capsule PO 100 mg Q12HR MARIAMA Administration Empagliflozin 25 mg 01/30/25 09:00 01/30/25 08:02 Empagliflozin 25 Mg Tablet PO 25 mg DAILY MARIAMA Administration Gabapentin 600 mg 01/30/25 09:00 01/30/25 06:21 Gabapentin 300 Mg Capsule PO 600 mg QAM MARIAMA Administration Gabapentin 300 mg 01/29/25 13:45 01/30/25 11:53 Gabapentin 300 Mg Capsule PO 300 mg 1200,2100 MARIAMA Administration Glucagon 1 mg 01/29/25 16:47 Glucagon For Inj 1 Mg Vial IM PRN PRN Hypoglycemia Protocol Glucagon 1 mg 01/29/25 16:50 Glucagon For Inj 1 Mg Vial IM PRN PRN Hypoglycemia Protocol Glucose 15 gm 01/29/25 16:47 Glucose Oral Gel 15 Gm Of Glucse In 37.5 Gm Tube PO PRN PRN Hypoglycemia Protocol Hydromorphone HCl 0.5 mg 01/29/25 13:24 Hydromorphone Hcl Inj (*Crx) 1 Mg/Ml Syr IV PUSH Q2H PRN Pain Rated 7-10 Cefazolin Sodium 1 gm/ Sodium 50 mls @ 100 mls/hr 01/29/25 15:00 01/30/25 14:03 Chloride IVPB 100 mls/hr Q8H MARIAMA Administration Dextrose 1,000 mls @ 100 mls/hr 01/29/25 16:47 Dextrose 5% 1,000 Ml IVPB PRN PRN Hypoglycemia Protocol Insulin Human Regular 1 each 01/30/25 06:00 01/30/25 06:19 Home Medication Insulin XX 1 each DAILY@0600 MARIAMA Administration Levothyroxine Sodium 25 mcg 01/30/25 06:30 01/30/25 06:20 Levothyroxine Sodium 25 Mcg Tablet PO 25 mcg DAILY@0630 MARIAMA Administration Magnesium Oxide 400 mg 01/30/25 09:00 01/30/25 08:02 Magnesium Oxide 400 Mg Tablet PO 03/01/25 08:59 400 mg DAILY MARIAMA Administration Metformin HCl 1,000 mg 01/29/25 17:00 01/30/25 08:02 Metformin Hcl Xr 500 Mg Tab.Sr.24h PO 1,000 mg BID MARIAMA Administration Ondansetron HCl 4 mg 01/29/25 13:24 Ondansetron Inj 4 Mg/2 Ml Vial IV PUSH Q8H PRN Nausea And Vomiting Ropinirole HCl 2 mg 01/30/25 09:00 01/30/25 11:57 Ropinirole Hcl 1 Mg Tablet PO 2 mg 0900,1200 MARIAMA Administration Ropinirole HCl 4 mg 01/29/25 21:00 01/29/25 21:22 Ropinirole Hcl 1 Mg Tablet PO 4 mg HS MARIAMA Administration Senna/Docusate Sodium 1 tab 01/29/25 13:24 Senna/Docusate Sodium Tablet PO HS PRN Constipation Sertraline HCl 100 mg 01/30/25 09:00 01/30/25 08:02 Sertraline Hcl 50 Mg Tablet PO 100 mg DAILY MARIAMA Administration Radiology Results: ITS Impressions Fluoroscopy 01/29/25 12:00 IMPRESSION: Fluoroscopy used during L4-5, L5-S1 redo posterolateral instrumented fusion. Labs Labs: Laboratory Results - last 24 hr 01/29/25 01/29/25 01/30/25 17:06 19:31 07:45 POC Capillary Glucose 195 H 269 H 107 H 01/30/25 11:42 POC Capillary Glucose 210 H
--- NOTE | 2025-02-13 13:58 | P.OP_ITS ---
Procedure Note - Detailed Date of Procedure 01/29/25 Pre-op Diagnosis L4-5, L5-S1 non union Post-op Diagnosis Same Procedure Performed Redo L4-5 and L5-S1 posterolateral instrumented fusion Surgeon Lowell Maria MD Anesthesia General Description of Procedure Patient was brought to the operating room in the supine position, was sedated, intubated placed under general anesthesia in routine fashion. Was then turned to the prone position on a Quintin frame. The operation was back was examined, marked for incision, prepped and draped in routine sterile fashion. Incision was marked over the L4 through S1 spinous processes in the midline. This area was injected with 0.5% lidocaine with [id number] epinephrine. Intravenous antibiotics given prior to incision. Incision was made with a 10 blade scalpel down to the lumbodorsal fascia. Bovie cautery was used to come through the soft tissues into the instrumentation was uncovered at L4 through S1. This was removed with the appropriate drivers. The spinous processes at L4, L5 and at the ala of the sacrum were uncovered using Bovie cautery. These were decorticated using a Midas Rafal drill and a combination of magnetos and local autograft bone were packed against these decorticated surfaces. Pedicle screw instrumentation was reapplied at L4 throu gh S1. Sequential tapping was used to find the right diameter of screw and the same length screws were used at each location. These were placed and then rods were placed in the screw heads on either side and secured in position using the caps for that purpose. These were definitively tightened with a torque and anti torque device. The wound was copiously irrigated with bacitracin irrigation all bleeding stopped with bipolar and Bovie cautery and Gelfoam thrombin powder. The wound was then closed in layered fashion with 2-0 Vicryl interrupted sutures in the lumbodorsal fascia and Poli's layer. 3-0 Vicryl buried interrupted sutures were placed in the dermis and the skin was closed with a running 4-0 Monocryl subcuticular stitch and dressed with Dermabond. Patient was allowed to wake up in the operating room was taken to the recovery room in stable condition. There were no immediate complications of this operation. All counts reported correct at the end the case. Blood loss was 200 cc. The patient was neurologically at his baseline postoperatively. Estimated Blood Loss 200 Urine Output 200 Complications None Condition Stable Disposition PACU [facility] Billing Surgery - Charge Forward: Surgery Billing
== END 2025-01-30 16:25 | disposition home or self-care (01) ==
LOC: ANHSURGERY 05:57 → ANH3MEDSUR 17:17
PROVIDERS: PCP Family Medicine; Visit Provider Neurological Surgery
PROC: (CPT 22612; principal; 2025-01-29 07:30)
DX: M48.061 Spinal stenosis, lumbar region without neurogenic claudication (principal); E03.9 Hypothyroidism, unspecified; E11.9 Type 2 diabetes mellitus without complications; M19.90 Unspecified osteoarthritis, unspecified site; F17.220 Nicotine dependence, chewing tobacco, uncomplicated; E66.9 Obesity, unspecified; Z68.33 Body mass index [BMI] 33.0-33.9, adult; Z79.84 Long term (current) use of oral hypoglycemic drugs; Z79.4 Long term (current) use of insulin; Z98.890 Other specified postprocedural states; Z98.1 Arthrodesis status; Z80.9 Family history of malignant neoplasm, unspecified; Z82.49 Family history of ischemic heart disease and other diseases of the circulatory system
CPT/HCPCS: 22612; 22614; 22842; 20936; 82948; 97116; 97162; 97165; 97530; 97535; 99199; J0690; A9270; C1713; J1100; J2004; J2371; J2405; J2704; J3010; J7120

== ENCOUNTER 2025-03-12 10:48 | Outpatient (CLI) | payer MEDICARE, OTHER, SELFPAY ==
--- NOTE | ~2025-03-12 | XR_ITS ---
XR lumbar spine 2-3V Indication: S32.009K - Unspecified fracture of unspecified lumbar js... Comparison: None Findings: Posterior fixation of S1, L5 and L4 with disc prostheses, the hardware is intact. Moderate to severe loss of the remaining disc height throughout. Soft tissues unremarkable Impression: No acute abnormality. Reviewed, dictated and finalized at location A. Impression: No acute abnormality.
--- OUTSIDE RECORDS SUMMARY | 2025-03-12 11:37 | XMS_ITS | Encounter Summary ---
Author Organization [facility] Address [facility] [place] [address] Care Team Providers Care Human Resources File Clerk Name Role Phone Sylvia Sandoval MD Primary Care Provider [phone] Chanell Roberts MD Unavailable Antonio Cain MD Unavailable [phone] Encounter Details Date Type Department Care Team (Late st Contact Info) Description 12/06/2022 Pre-Procedure Call [facility] [place] [address] Chanell Roberts MD [address] [place] [address] Social History Tobacco Use Types [...] place to sleep or slept in a correction (including now)? No 12/06/2022 Sex and Gender [...] on filedocumented in this encounter Care Teams Human Resources File Clerk Relationship Specialty Start Date End Date Sylvia Sandoval MD [address] [place] [phone] PCP - General FAMILY PRACTICE 03/07/17 Chanell Roberts MD [address] [place] [address] Consulting Physician CARDIOVASCULAR DISEASE 04/22/22 Antonio Cain MD [address] [place] [address] Consulting Physician ORTHOPAEDIC SPINE SURGERY 09/17/22 documented as of this encounter
--- OUTSIDE RECORDS SUMMARY | 2025-03-12 11:37 | XMS_ITS | Encounter Summary ---
Author Organization [facility] Address [address] [place] [address] Care Team Providers Care Superintendent System Operation Name Role Phone Sylvia Sandoval MD Primary Care Provider [phone] Ziggy Garrison MD Unavailable [phone] Chanell Roberts MD Unavailable Antonio Cain MD Unavailable [phone] Encounter Details Date Type Department Care Team (Late st Contact Info) Description 11/25/2018 Abstract SFL CONVERSION [address] [place] [address] , Generic Conversion, Social History [...] Rule Out 08/18/2021 08/18/2021 08/18/2021 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 documented as of this encounter Care Teams Superintendent System Operation Relationship Specialty Start Date End Date Sylvia Sandoval MD [address] [place] [phone] PCP - General FAMILY PRACTICE 03/07/17 [place] [address] [place] [address] [place] [phone] Sparks Database Management Specialist CARDIOVASCULAR DISEASE 03/07/17 04/21/22 Chanell Roberts MD [address] [place] [address] Consulting Physician CARDIOVASCULAR DISEASE 04/22/22 Antonio Cain MD [address] [place] [address] Consulting Physician ORTHOPAEDIC SPINE SURGERY 09/17/22 documented as of this encounter
--- OUTSIDE RECORDS SUMMARY | 2025-03-12 11:37 | XMS_ITS | Clinical Summary ---
Author Organization 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
--- OUTSIDE RECORDS SUMMARY | 2025-03-12 11:37 | XMS_ITS | Encounter Summary ---
Author Organization [facility] Address [facility] [place] [address] Care Team Providers Care Genetic Engineer Name Role Phone Sylvia Sandoval MD Primary Care Provider [phone] Chanell Roberts MD Unavailable Antonio Cain MD Unavailable [phone] Encounter Details Date Type Department Care Team (Late st Contact Info) Description 12/09/2022 Hospital Follow-up Call [facility] [address] [place] [address] Lidya Nunez, RN Social History [...] place to sleep or slept in a intermediate (including now)? No 12/06/2022 Sex and Gender [...] on filedocumented in this encounter Care Teams Genetic Engineer Relationship Specialty Start Date End Date Sylvia Sandoval MD [address] [place] [address] PCP - General FAMILY PRACTICE 03/07/17 Chanell Roberts MD [address] [place] [address] Consulting Physician CARDIOVASCULAR DISEASE 04/22/22 Antonio Cain MD [address] [place] [phone] Consulting Physician ORTHOPAEDIC SPINE SURGERY 09/17/22 documented as of this encounter
--- OUTSIDE RECORDS SUMMARY | 2025-03-12 11:37 | XMS_ITS | Clinical Summary ---
Author Organization [facility] Address [address] [place] [address] Care Team Providers Care Adult Live In Caregiver Name Role Phone Mely Morgan PA-C Primary Care Provider Amaris Nagy MD Unavailable [phone] Source Comments [facility],non-owned Affiliates and Associated Physician Practices is amultiple site organization consisting of ambulatory clinics and hospital sitesin [place], [place], [place] and [place]. This disclosure is being madepursuant to the Care Everywhere program and may not contain all information available regarding this patient. Last updated 18.[facility] Allergies No known active allergies Medications * [...] 12/09/2023 , 12/08/2020, 12/07/2020, Additional history exists DEPRESSION SCREENING 06/20/2024 COVID-19 VACCINE (1 - 2023- season) 2025 INFLUENZA VACCINE (#1) 2025 Respiratory Syncytial Virus [...] this topic Medical Devices Implanted Type Area Dumb Waiter Operator Device Identifier Shelf Expiration Date Model / Serial / Lot Plate Lopro Crsslck Rds Rt Dist Volr 51 Implanted:Qty: 1 on 12/07/2020 by Amaris Nagy MD at [facility] Right: Wrist [employer] [id number] / / Screw 2.7mm 18mm 3 Ld Thrdlk Tpr Head Implanted:Qty: 1 on 12/07/2020 by Amaris Nagy MD at [facility] Right: Wrist [employer] [id number] / / Screw 2.7mm 20mm Crsslck Tpr Head 3 Ld Implanted:Qty: 1 on 12/07/2020 by Amaris Nagy MD at [facility] Right: Wrist [employer] [id number] / / Screw 2.7mm 22mm Lck Sorin Nonster Bone Implanted:Qty: 4 on 12/07/2020 by Amaris Nagy MD at [facility] Right: Wrist [employer] [id number] / / Screw 2.7mm 24mm Crsslck Tpr Head 3 Ld Implanted:Qty: 2 on 12/07/2020 by Amaris Nagy MD at [facility] Right: Wrist [employer] [id number] / / Screw 2.7mm 16mm Sq Lck Rds Dist Volr Implanted:Qty: 2 on 12/07/2020 by Amaris Nagy MD at [facility] Right: Wrist [employer] [id number] / / Screw 2.7mm 16mm Lopro Nonster Bone Lf Implanted:Qty: 1 on 12/07/2020 by Amaris Nagy MD at [facility] Right: Wrist [employer] [id number] / / Explanted Type Area Dumb Waiter Operator Device Identifier Shelf Expiration Date Model / Serial / Lot Wire K 1.6mm Ss Fx Nonster Explanted:Qty: 3 on 12/07/2020 at [facility] Right: Wrist [employer] [id number] / / Procedures Procedure Name Priority Date/Time Associated Diagnosis Comments GLUCOSE - POINT OF CARE Routine 12/08/2020 8:09 AM CDT from Last 3 Months or Most Recently Relevant to Health Maintenance Results * (ABNORMAL) GLUCOSE - POINT OF CARE (12/08/2020 8:09 AM CDT) [facility] Glucose WB/POC 234(H) 70 - 106 mg/dL 12/08/2020 8:26 AM CDT [facility] Specimen Type Arterial/C apillary 12/08/2020 8:26 AM CDT [facility] Blood BLOOD SPECIMEN / Unknown 12/08/2020 8:09 AM CDT 12/08/2020 8:26 AM CDT Angel Garza MD LAB - POINT OF CARE O RDERABLES Final Result [facility] [address] [place] [address] from Last 3 Months or Most Recently Relevant to Health Maintenance Insurance AET MEDICARE Advance Directives * Full Code (Latest Code Status on File) Date Activated Date Inactivated Comments 12/06/2020 7:32 PM 12/08/2020 4:45 PM Care Teams Adult Live In Caregiver Relationship Specialty Start Date End Date Mely Morgan PA-C [address] [place] [address] PCP - General Physician Manager Concrete 12/06/20 [place] [address] [place] [address] Orthopedic Surgery 12/17/20
--- OUTSIDE RECORDS SUMMARY | 2025-03-12 11:37 | XMS_ITS | Clinical Summary ---
Author Organization [facility] Address [facility] [place] [address] Care Team Providers Care Fire Management Specialist Name Role Phone Sylvia Sandoval MD Primary Care Provider [phone] Audrey Lanza MD Unavailable Atnonio Cain MD Unavailable [phone] Allergies No known active allergies Medications metFORMIN [...] (400 mg total) by mouth daily. 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 Resolved Problems Problem Noted Date Diagnosed Date Resolved Date Pre-operative cardiovascular examination 01/15/2020 02/29/2020 Encounters Date Type Department Care Team Description 01/24/2025 11:20 AM CDT Office Visit [address] [place] [address] Charlene Olivares APRN Eye Problem (Pt is here for left eye pain, Pt thinks he has something in his left eye, he's tried eye drops w no relief and also has rinsed it, pt states he got something in it last Tuesday ) 01/24/2025 Travel from Last 3 Months Immunizations Immunization Administration [...] Wellness Visit 2018 COVID-19 Vaccine ( season) 2025 09/20/2020, 08/31/2020 RSV Immunization or 60+ Years (1 - 1-dose 75+ series) 2028 DTaP, Tdap and Td Vaccines (2 - Td or Tdap) 09/01/2030 09/01/2020 Pneumococcal Vaccine: 50+ Years Completed 04/01/2020, 12/25/2018 AAA SCREENING Completed 12/23/2022, 05/22, 12/06/2020, Additional history exists PHQ-2 (Physician Charmco) Completed 01/24/2025 Meningococcal B Vaccine Aged Out No l onger eligible based on patient's age to complete this topic Meningococcal Vaccine Aged Out No kateryna amy eligible based on patient's age to complete this topic RSV Immunizations Under 20 Months Aged Out No longer eligible based on patient's age to complete this topic Medical Devices Implanted Type Area Wheel Inspector Device Identifier Shelf Expiration Date Model / Serial / Lot Graft Infuse Bone Small - [id number] Implanted:Qty: 1 on 09/24/2022 by Antonio Cain MD at [facility] Bone N/A: Spine Lumbar [employer] 06/20/2024 [id number] / / [id number] Graft Bone Allosource Canc Crushed Fd 30ml - [id number] Implanted:Qty: 1 on 09/24/2022 by Antonio Cain MD at [facility] Bone N/A: Spine Lumbar [employer] 08/17/2025 [id number] / [id number] / Screw Bone 7.5mm 45mm Cd Horizon Voyager Spine Multiaxial Nonsterile 5.5mm Issac - [id number] Implanted:Qty: 4 on 09/24/2022 by Antonio Cain MD at [facility] Screw N/A: Spine Lumbar [employer] [id number] / / Screw Set 5.5/6mm Cd Horizon Soleral Voyager Nonsterile Latex Free - [id number] Implanted:Qty: 6 on 09/24/2022 by Antonio Cain MD at [facility] Screw N/A: Spine Lumbar [employer] [id number] / / Agent Hemostatic Surgiflo 8 Ml Kit - [id number] Implanted:Qty: 1 on 09/24/2022 by Antonio Cain MD at [facility] Sealant N/A: Spine Lumbar [employer] 2994 / / Tissue Surgiflo 8ml - [id number] Implanted:Qty: 1 on 01/18/2020 by Antonio Cain MD at [facility] Spine Lumbar [employer] 03/19/2021 [id number] / / [id number] Spacer 28mm X 12mm Implanted:Qty: 1 on 09/24/2022 by Antonio Cain MD at [facility] N/A: Spine Lumbar [employer] 08/27/2028 [id number] / / [id number] Spacer 28mm X 12mm Implanted:Qty: 1 on 09/24/2022 by Antonio Cain MD at [facility] N/A: Spine Lumbar [employer] 08/04/2028 [id number] / / [id number] 7.5 X 40mm Mas Implanted:Qty: 2 on 09/24/2022 by Antonio Cain MD at [facility] N/A: Spine Lumbar [employer] [id number] / / 55mm Capped Issac Implanted:Qty: 2 on 09/24/2022 by Antonio Cain MD at [facility] N/A: Spine Lumbar [employer] [id number] / / Explanted Type Area Wheel Inspector Device Identifier Shelf Expiration Date Model / Serial / Lot Bur Drill Neuro Jonah 3.0mm X 3.8mm - [id number] Explanted:Qty: 1 on 08/21/2021 at [facility] Drill Spine Lumbar [employer] - DIV JONAH MARKOS [id number] / / Bit Drill 3.8mm 3mm Precision Neuro - [id number] Explanted:Qty: 1 on 09/24/2022 by Antonio Cain MD at [facility] Drill N/A: Spine Lumbar [employer] JONAH MARKOS [id number] / / Agent Hemostatic Surgiflo Thrombin 8 Ml Kit Matrix Steril - [id number] Explanted:Qty: 1 on 08/21/2021 by Antonio Cain MD at [facility] Sealant Spine Lumbar [employer] 11/17/2022 2994 / / [id number] Bur Drill Neuro Temperance 3.0mm X 3.8mm - [id number] Explanted:Qty: 1 on 01/18/2020 at [facility] JONAH [employer] - DIV JONAH MARKOS [id number]- [...] Ordered By: AUDREY LANZA Interpreted By: Ziggy eD Leon MD, 12/24/2022 9:05 AM us Audrey Lanza MD CT Final Result from Last 3 Months or Most Recently Relevant to Health Maintenance Insurance [facility] Advance Directives * Full Code (Latest Code Status on File) Date Activated Date Inactivated Comments 12/05/2022 10:59 PM 12/07/2022 1:32 PM * Full Code Date Activated Date Inactivated Comments 09/24/2022 5:35 PM 09/24/2022 5:38 PM Care Teams Fire Management Specialist Relationship Specialty Start Date End Date Sylvia Sandoval MD [address] [facility] [place] [phone] PCP - General FAMILY PRACTICE 03/07/17 Audrey Lanza MD [address] [place] [address] Consulting Physician CARDIOVASCULAR DISEASE 04/22/22 Antonio Cain MD [address] [place] [phone] Consulting Physician ORTHOPAEDIC SPINE SURGERY 09/17/22
== END 2025-03-12 10:49 | disposition home or self-care (01) ==
PROVIDERS: PCP Family Medicine; Visit Provider Neurological Surgery
DX: S32.009K Unspecified fracture of unspecified lumbar vertebra, subsequent encounter for fracture with nonunion (principal); X58.XXXD Exposure to other specified factors, subsequent encounter
CPT/HCPCS: 22899; 72100